=== PATIENT | female | born 1985 | race American Indian/Alaskan Native ===

== ENCOUNTER 2017-04-19 08:47 | Emergency (ER) | payer OTHER ==
[2017-04-19 08:51] VITALS: BMI 29.4
[2017-04-19] MEDS ORDERED: ONDANSETRON 4 MG/2 ML VIAL IVPB ONE (09:14)
[2017-04-19] MEDS ORDERED: PIPERACIL/TAZOB 3.375 GM 3.375 GM/50 ML PREMIX IVPB ONE (09:14)
[2017-04-19] MEDS ORDERED: SODIUM CHLORIDE 1,000 ML IV STA (09:14)
--- NOTE | 2017-04-19 09:18 | PDOC ---
History of Present Illness - General History Source: Patient, Old Records Exam Limitations: No Limitations <Adan Harrington - Last Filed: 04/19/17 11:41> - General History Source: Patient, Old Records Exam Limitations: No Limitations - History of Present Illness Initial Comments: 04/19/17 10:09 The patient is a 31 year old female with a significant PMH of kidney stones who presents to the emergency department with 6 hours of left sided pain and 2 hours of abdominal pain. The patient reports waking up at 3AM to spasm-like left sided flank pain that has been intermittent since then. She also reports nausea beginning this morning. She notes that this episode feels like her kidney stone from before. The patient denies any regular medications. The patient denies chest pain, shortness of breath, headache and dizziness. Denies fever, chills, vomit, diarrhea and constipation. Denies dysuria, frequency, urgency and hematuria. Allergies: NKA Past surgical history: None reported. Social history: No reported toxic habits. Urologist: Dr. Paula <Adan Suggs - Last Filed: 04/19/17 14:30> - General Chief Complaint: Pain Stated Complaint: LT SIDE PAIN Time Seen by Provider: 04/19/17 09:07 Past History - Past Medical History Anemia: No Asthma: No Cancer: No Cardiac Disorders: No CVA: No COPD: No CHF: No Dementia: No Diabetes: No GI Disorders: No Disorders: Yes (KIDNEY STONES) HTN: No Hypercholesterolemia: No Liver Disease: No Seizures: No Thyroid Disease: No - Surgical History Abdominal Surgery: Yes (gastric sleeve) Cholecystectomy: Yes - Immunization History Immunization Up to Date: Yes - Suicide/Smoking/Psychosocial Hx Smoking Status: No Smoking History: Never smoked Have you smoked in the past 12 months: Yes Number of Cigarettes Smoked Daily: 4 'Breaking Loose' booklet given: 09/23/12 Hx Alcohol Use: No Drug/Substance Use Hx: No Substance Use Type: None Hx Substance Use Treatment: No <Adan Harrington - Last Filed: 04/19/17 11:41> <Adan Suggs - Last Filed: 04/19/17 14:30> - Past Medical History Allergies/Adverse Reactions: Allergies Allergy/AdvReac Type Severity Reaction Status Date / Time No Known Allergies Allergy Verified 04/19/17 08:47 Home Medications: Ambulatory Orders Naproxen [Naprosyn -] 500 mg PO BID PRN #14 tablet 04/19/17 Ondansetron HCl [Zofran] 4 mg PO Q8H PRN #12 tablet 04/19/17 Oxycodone HCl/Acetaminophen [Percocet 5-325 mg Tablet] 1 tab PO Q6H PRN #15 tablet MDD 4 04/19/17 Tamsulosin HCl [Flomax] 0.4 mg PO DAILY #14 cap.er.24h 04/19/17 Review of Systems - Review of Systems Able to Perform ROS?: Yes Comments:: 04/19/17 10:10 GENERAL/CONSTITUTIONAL: No fever or chills. No weakness. HEAD, EYES, EARS, NOSE AND THROAT: No change in vision. No ear pain or discharge. No sore throat. CARDIOVASCULAR: No chest pain or shortness of breath. RESPIRATORY: No cough, wheezing, or hemoptysis. GASTROINTESTINAL: (+) Nausea. (+) Abdominal pain. No vomiting diarrhea or constipation. GENITOURINARY: No dysuria, frequency, or change in urination. MUSCULOSKELETAL: (+) Left sided flank pain. No joint pain. No neck or back pain. SKIN: No rash NEUROLOGIC: No headache, vertigo, loss of consciousness, or change in strength/ sensation. ENDOCRINE: No increased thirst. No abnormal weight change. HEMATOLOGIC/LYMPHATIC: No anemia, easy bleeding, or history of blood clots. ALLERGIC/IMMUNOLOGIC: No hives or skin allergy. <Adan Suggs - Last Filed: 04/19/17 14:30> *Physical Exam - Vital Signs Last Vital Signs Temp Pulse Resp BP Pulse Ox 98.1 F 79 18 132/82 100 04/19/17 08:48 04/19/17 08:48 04/19/17 08:48 04/19/17 08:48 04/19/17 08:48 <Adan Harrington - Last Filed: 04/19/17 11:41> - Vital Signs Last Vital Signs Temp Pulse Resp BP Pulse Ox 98.1 F 79 18 132/82 100 04/19/17 08:48 04/19/17 08:48 04/19/17 08:48 04/19/17 08:48 04/19/17 08:48 - Physical Exam Comments: 04/19/17 10:10 GENERAL: (+) Uncomfortable appearing. Awake, alert, and fully oriented. HEAD: No signs of trauma EYES: PERRLA, EOMI, sclera anicteric, conjunctiva clear ENT: Auricles normal inspection, hearing grossly normal, nares patent, oropharynx clear without exudates. Moist mucosa NECK: Normal ROM, supple, no lymphadenopathy, JVD, or masses LUNGS: Breath sounds equal, clear to auscultation bilaterally. No wheezes, and no crackles HEART: Regular rate and rhythm, normal S1 and S2, no murmurs, rubs or gallops ABDOMEN: Soft, nontender, normoactive bowel sounds. No guarding, no rebound. No masses EXTREMITIES: Normal range of motion, no edema. No clubbing or cyanosis. No cords, erythema, or tenderness MUSCULOSKELETAL: (+) Left side CVA tenderness NEUROLOGICAL: Cranial nerves II through XII grossly intact. Normal speech, normal gait SKIN: Warm, Dry, normal turgor, no rashes or lesions noted. <Adan Suggs - Last Filed: 04/19/17 14:30> ED Treatment Course - LABORATORY CBC & Chemistry Diagram: 04/19/17 09:15 04/19/17 09:15 - RADIOLOGY Radiology Studies Ordered: Category Date Time Status SPIRAL- RENAL-STONE CT [CT] Stat CT Scan 04/19/17 09:14 Ordered <Adan Harrington - Last Filed: 04/19/17 11:41> - LABORATORY CBC & Chemistry Diagram: 04/19/17 09:15 04/19/17 09:15 - ADDITIONAL ORDERS Additional order review: Laboratory Results 04/19/17 04/19/17 09:15 09:15 Serum , Qual Negative Urine Color Ltyellow Urine Appearance Clear Urine pH 9.0 H D Ur Specific [place] 1.012 Urine Protein Negative Urine Glucose (UA) Negative Urine Ketones Negative Urine Blood Negative Urine Nitrite Negative Urine Bilirubin Negative Urine Urobilinogen Negative 04/19/17 09:15 RBC 4.05 MCV 78.0 L MCHC 32.2 RDW 16.9 H D MPV 7.6 Neutrophils % 78.9 D Lymphocytes % 16.7 D Monocytes % 3.5 L Eosinophils % 0.3 D Basophils % 0.6 - Medications Given in the ED: ED Medications Discontinued Medications Generic Name Dose Route Start Last Admin Trade Name Freq PRN Reason Stop Dose Admin Ondansetron HCl 4 mg 04/19/17 09:14 04/19/17 09:33 Zofran Injection IVPB 04/19/17 09:15 4 mg ONCE ONE Administration - Additional Consults Consult/PCP: Baudilio Paula MD Reason/Comments: Saw her for kidney stone in past (2012) <Adan Suggs - Last Filed: 04/19/17 14:30> Medical Decision Making - Medical Decision Making 04/19/17 09:17 A portion of this note was documented by scribe services under my direction. I have reviewed the details of the note, within reason, and agree with the documentation with the following case summary and management plan written by me. Patient treated in the ED. Nursing notes are reviewed and incorporated into the medical decision-making. Vital signs reviewed. Peripheral IV access obtained by the nurse, laboratory studies are drawn and sent, reviewed and interpreted by myself. Vital Signs Temp Pulse Resp BP Pulse Ox 98.1 F 79 18 132/82 100 04/19/17 08:48 04/19/17 08:48 04/19/17 08:48 04/19/17 08:48 04/19/17 08:48 31-year-old female with past medical history renal colic presents with left flank pain since 3:00 in the morning. The patient was in her usual state of health when she started feeling constant left-sided flank pain with nausea. No vomiting, dysuria, hematuria or fevers or chills. Patient states feels exactly like renal colic. I suspect this is likely renal colic. Rule out pyelonephritis. Labs, urinalysis spiral CT. Pain control, anti-emetics and reassess. 04/19/17 11:41 CBC, BMP 04/19/17 09:15 04/19/17 09:15 CMP Sodium 138 mmol/L (136-145) 04/19/17 09:15 Potassium 3.9 mmol/L (3.5-5.1) 04/19/17 09:15 Chloride 105 mmol/L (98-107) 04/19/17 09:15 Carbon Dioxide 26 mmol/L (21-32) 04/19/17 09:15 Anion Gap 7 (8-16) L 04/19/17 09:15 BUN 10 mg/dL (7-18) 04/19/17 09:15 Creatinine 0.8 mg/dL (0.55-1.02) 04/19/17 09:15 Creat Clearance w eGFR > 60 (>60) 04/19/17 09:15 Random Glucose 94 mg/dL (74-106) 04/19/17 09:15 Calcium 8.4 mg/dL (8.5-10.1) L 04/19/17 09:15 Total Bilirubin 0.5 mg/dL (0.2-1.0) D 04/19/17 09:15 AST 10 U/L (15-37) L D 04/19/17 09:15 ALT 16 U/L (12-78) D 04/19/17 09:15 Alkaline Phosphatase 74 U/L (45-117) 04/19/17 09:15 Total Protein 7.2 g/dl (6.4-8.2) 04/19/17 09:15 Albumin 3.9 g/dl (3.4-5.0) 04/19/17 09:15 Lipase 130 U/L (73-393) 04/19/17 09:15 Serum , Qual Negative 04/19/17 09:15 Urine Test Results Urine Color Ltyellow 04/19/17 09:15 Urine Appearance Clear 04/19/17 09:15 Urine pH 9.0 (5.0-8.0) H D 04/19/17 09:15 Ur Specific [place] 1.012 (1.001-1.035) 04/19/17 09:15 Urine Protein Negative (NEGATIVE) 04/19/17 09:15 Urine Glucose (UA) Negative (NEGATIVE) 04/19/17 09:15 Urine Ketones Negative (NEGATIVE) 04/19/17 09:15 Urine Blood Negative (NEGATIVE) 04/19/17 09:15 Urine Nitrite Negative (NEGATIVE) 04/19/17 09:15 Urine Bilirubin Negative (NEGATIVE) 04/19/17 09:15 I had called the laboratory who reports that the UA is negative for leukocyte esterase. Patient's CAT scan was reviewed and demonstrates to have 5 x 7 mm proximal left ureter calculus with mild hydronephrosis and partial obstruction. Patient is no fever, elevated white count or infection the urine. I discussed the case with Dr. Tran who the patient saw in the past. The patient's pain is improved and is tolerating by mouth. After discussing case with urologist, he states that the patient can be discharged and follow up in his office tomorrow for further disposition. I discussed the plan with the patient was agree with the plan and feels comfortable. I discussed the physical exam findings, ancillary test results and final diagnoses with the patient. I answered all of the patient's questions. The patient was satisfied with the care received and felt comfortable with the discharge plan and treatment plan. The patient will call their primary care physician within 24 hours to arrange follow-up and will return to the Emergency Department with any new, persistant or worsening symptoms. <Adan Harrington - Last Filed: 04/19/17 11:41> *DC/Admit/Observation/Transfer - Discharge Dispostion Admit: No <Adan Harrington - Last Filed: 04/19/17 11:41> - Attestations Scribe Attestion: 04/19/17 10:10 Documentation prepared by Adan Suggs, acting as medical delivery technician for Adan Harrington MD. <Adan Suggs - Last Filed: 04/19/17 14:30> Diagnosis at time of Disposition: Renal calculus, left - Discharge Dispostion Disposition: HOME Condition at time of disposition: Improved - Prescriptions Prescriptions: Naproxen [Naprosyn -] 500 mg PO BID PRN #14 tablet PRN Reason: Pain Ondansetron HCl [Zofran] 4 mg PO Q8H PRN #12 tablet PRN Reason: Nausea Oxycodone HCl/Acetaminophen [Percocet 5-325 mg Tablet] 1 tab PO Q6H PRN #15 tablet MDD 4 PRN Reason: Severe Pain Tamsulosin HCl [Flomax] 0.4 mg PO DAILY #14 cap.er.24h - Referrals Referrals: Jose Maria Seo [Primary Care Provider] - Baudilio Paula MD [Staff Physician] - - Patient Instructions Printed Discharge Instructions: DI for Kidney Stones Additional Instructions: You have a 7 mm kidney stone on the left side. Please drink plenty of fluids and rest. Take 500 mg naproxen every 12 hours as needed for pain. For additional pain relief, take 1 tablet of percocet every 6 to 8 hours as needed. Do not drink or drive on this medication. Take the flomax daily. Follow up with DR. Paula tomorrow. Call to confirm time. - Post Discharge Activity Forms/Work/School Notes: Back to Work
[2017-04-19] MEDS ORDERED: morphine SULFATE 4 MG/ML VIAL ONE ×2 (09:24→11:32)
[2017-04-19] MEDS ORDERED: ONDANSETRON 4 MG/2 ML VIAL ONE (09:25)
[2017-04-19 09:38] LABS: URINE APPEARANCE CLEAR; URINE BILIRUBIN NEGATIVE (NEGATIVE); URINE BLOOD NEGATIVE (NEGATIVE); URINE COLOR LTYELLOW; URINE GLUCOSE (UA) NEGATIVE (NEGATIVE); URINE KETONE NEGATIVE (NEGATIVE); URINE NITRITE NEGATIVE (NEGATIVE); URINE PROTEIN NEGATIVE (NEGATIVE); URINE UROBILINOGEN NEGATIVE mg/dL (0.2-1.0)
[2017-04-19 09:41] LABS: BASOPHIL 0.6 % (0-2.0); EOSINOPHIL 0.3 % (0-4.5); MCH 25.1 pg (25.7-33.7); MCHC 32.2 g/dl (32.0-36.0); MEAN PLT VOLUME 7.6 fl (7.5-11.1); NEUTROPHILS 78.9 % (42.8-82.8); PLATELET COUNT 334 K/MM3 (134-434); RDW 16.9 % (11.6-15.6); WHITE BLOOD COUNT 9.3 K/mm3 (4.0-10.0)
[2017-04-19] MEDS ORDERED: morphine CARPU-JECT 4 MG/1 ML DISP.SYRIN IVPUSH ONE ×3 (10:01→11:36)
[2017-04-19 10:08] LABS: ALBUMIN 3.9 g/dl (3.4-5.0); ANION GAP 7 (8-16); BILIRUBIN,TOTAL 0.5 mg/dL (0.2-1.0); CALCIUM 8.4 mg/dL (8.5-10.1); CO2 26 mmol/L (21-32); CREATININE 0.8 mg/dL (0.55-1.02); GLUCOSE,RANDOM 94 mg/dL (74-106); SGOT/AST 10 U/L (15-37); SGPT/ALT 16 U/L (12-78); TOT PROT 7.2 g/dl (6.4-8.2)
[2017-04-19 10:09] LABS: ALK PHOS 74 U/L (45-117)
[2017-04-19] MEDS ORDERED: RANITIDINE HCL 150 MG TABLET (FP) PO ONE (10:41)
[2017-04-19] MEDS ORDERED: MAG HYDROX/AL HYDROX/SIMETH 30 ML UNIT-DOSE CUP PO ONE (10:41)
[2017-04-19] MEDS ORDERED: RANITIDINE HCL 150 MG TABLET (FP) ONE (11:16)
[2017-04-19] MEDS ORDERED: MAG HYDROX/AL HYDROX/SIMETH 30 ML UNIT-DOSE CUP ONE (11:16)
[2017-04-19] MEDS ORDERED: KETOROLAC TROMETHAMINE 15 MG/ML VIAL IVPUSH ONE (11:35)
[2017-04-19 13:05] VITALS: BP 147/85; PULSE 61; TEMP 98.6
[2017-04-19 17:11] LABS: URINE LEUK ESTERASE Negative (NEGATIVE)
== END 2017-04-19 13:05 | disposition home or self-care (01) ==
LOC: JER 08:47
PROC: 3E033NZ Introduction of Analgesics, Hypnotics, Sedatives into Peripheral Vein, Percutaneous Approach (ICD-10-PCS; principal; 2017-04-19)
PROC: 3E033NZ Introduction of Analgesics, Hypnotics, Sedatives into Peripheral Vein, Percutaneous Approach (ICD-10-PCS; 2017-04-19)
PROC: 3E033GC Introduction of Other Therapeutic Substance into Peripheral Vein, Percutaneous Approach (ICD-10-PCS; 2017-04-19)
DX: N20.0 Calculus of kidney (principal); Z87.442 Personal history of urinary calculi
CPT/HCPCS: 36415; 74176; 80053; 81003; 83690; 84703; 85025; 87086; 87186; 96374; 96375; 96376; 99284-25

== ENCOUNTER 2017-04-21 00:30 | Emergency (ER) | payer OTHER ==
[2017-04-21 00:44] VITALS: BMI 29.4
[2017-04-21 01:16] LABS: BASOPHIL 0.2 % (0-2.0); EOSINOPHIL 0.1 % (0-4.5); MCH 25.1 pg (25.7-33.7); MCHC 32.2 g/dl (32.0-36.0); MEAN PLT VOLUME 7.7 fl (7.5-11.1); NEUTROPHILS 87.1 % (42.8-82.8); PLATELET COUNT 284 K/MM3 (134-434); RDW 17.2 % (11.6-15.6); WHITE BLOOD COUNT 11.6 K/mm3 (4.0-10.0)
[2017-04-21 01:42] LABS: ALBUMIN 3.7 g/dl (3.4-5.0); ALK PHOS 71 U/L (45-117); ANION GAP 11 (8-16); BILIRUBIN,TOTAL 0.5 mg/dL (0.2-1.0); CO2 23 mmol/L (21-32); GLUCOSE,RANDOM 119 mg/dL (74-106); SGOT/AST 8 U/L (15-37); SGPT/ALT 14 U/L (12-78); TOT PROT 6.9 g/dl (6.4-8.2)
[2017-04-21] MEDS ORDERED: SODIUM CHLORIDE 1,000 ML IV STA (02:04)
[2017-04-21] MEDS ORDERED: KETOROLAC TROMETHAMINE 30 MG/1 ML VIAL IVPUSH ONE (02:05)
[2017-04-21] MEDS ORDERED: KETOROLAC TROMETHAMINE 30 MG/1 ML VIAL ONE (02:10)
--- NOTE | 2017-04-21 02:12 | PDOC ---
History of Present Illness - General History Source: Patient Exam Limitations: No Limitations - History of Present Illness Initial Comments: 04/21/17 02:18 Patient is a 31 year old female with a significant past medical history of recurrent kidney stones who presents to the ED with complaints of left flank pain that began 3 days ago. Patient reports coming to the ED yesterday for left flank and abdominal pain. Patient was diagnosed with kidney stone by physician. She reports left side flank pain has been persistent since being discharged from the ED last night. Patient reports experiencing left groin pain secondary to left flank pain. Denies chest pain, SOB. Denies fever, chills. Denies coughing, nausea, vomiting. Denies trauma to affected area. Denies any other symptoms. Allergies: None Social history: Current smoker (4 cigarettes per day). No alcohol. No illicit drugs. Surgical history: None PMD: Dr. Seo. Urologist : Dr. Paula <Beau Becker - Last Filed: 04/21/17 02:18> <Marias Rodriguez - Last Filed: 04/21/17 03:47> - General Chief Complaint: Pain Stated Complaint: PAIN/ VOMITING Time Seen by Provider: 04/21/17 00:41 Past History <Beau Becker - Last Filed: 04/21/17 02:18> - Past Medical History Anemia: No Asthma: No Cancer: No Cardiac Disorders: No CVA: No COPD: No CHF: No Dementia: No Diabetes: No GI Disorders: No Disorders: Yes (KIDNEY STONES) HTN: No Hypercholesterolemia: No Liver Disease: No Seizures: No Thyroid Disease: No - Surgical History Abdominal Surgery: Yes (gastric sleeve) Cholecystectomy: Yes - Immunization History Immunization Up to Date: Yes - Suicide/Smoking/Psychosocial Hx Smoking Status: No Smoking History: Never smoked Have you smoked in the past 12 months: No Number of Cigarettes Smoked Daily: 4 Information on smoking cessation initiated: No 'Breaking Loose' booklet given: 09/23/12 Hx Alcohol Use: No Drug/Substance Use Hx: No Substance Use Type: None Hx Substance Use Treatment: No <Marisa Rodriguez - Last Filed: 04/21/17 03:47> - Past Medical History Allergies/Adverse Reactions: Allergies Allergy/AdvReac Type Severity Reaction Status Date / Time No Known Allergies Allergy Verified 04/21/17 00:42 Home Medications: Ambulatory Orders Naproxen [Naprosyn -] 500 mg PO BID PRN #14 tablet 04/19/17 Ondansetron HCl [Zofran] 4 mg PO Q8H PRN #12 tablet 04/19/17 Oxycodone HCl/Acetaminophen [Percocet 5-325 mg Tablet] 1 tab PO Q6H PRN #15 tablet MDD 4 04/19/17 Tamsulosin HCl [Flomax] 0.4 mg PO DAILY #14 cap.er.24h 04/19/17 Review of Systems - Review of Systems Able to Perform ROS?: Yes Comments:: 04/21/17 02:18 CONSTITUTIONAL: Absent: fever, chills, diaphoresis, generalized weakness, malaise, loss of appetite HEENT: Absent: rhinorrhea, nasal congestion, throat pain, throat swelling, difficulty swallowing, mouth swelling, ear pain, eye pain, visual Changes CARDIOVASCULAR: Absent: chest pain, syncope, palpitations, irregular heart rate, lightheadedness , peripheral edema RESPIRATORY: Absent: cough, shortness of breath, dyspnea with exertion, orthopnea, wheezing, stridor, hemoptysis GASTROINTESTINAL: Absent: abdominal pain, abdominal distension, nausea, vomiting, diarrhea, constipation, melena, hematochezia GENITOURINARY: Absent: dysuria, frequency, urgency, hesitancy, hematuria, flank pain, genital pain MUSCULOSKELETAL: Absent: myalgia, arthralgia, joint swelling SKIN: Absent: rash, itching, pallor HEMATOLOGIC/IMMUNOLOGIC: Absent: easy bleeding, easy bruising, lymphadenopathy, frequent infections ENDOCRINE: Absent: unexplained weight gain, unexplained weight loss, heat intolerance, cold intolerance NEUROLOGIC: Absent: headache, focal weakness or paresthesias, dizziness, unsteady gait, seizure, mental status changes, bladder or bowel incontinence PSYCHIATRIC: Absent: anxiety, depression, suicidal or homicidal ideation, hallucinations. All Other Systems: Reviewed and Negative <Beau Becker - Last Filed: 04/21/17 02:18> *Physical Exam - Vital Signs Last Vital Signs Temp Pulse Resp BP Pulse Ox 94 H 14 146/85 96 04/21/17 00:42 04/21/17 00:42 04/21/17 00:42 04/21/17 00:42 - Physical Exam Comments: 04/21/17 02:18 GENERAL: Well developed, well nourished. Awake and alert. No acute distress. HEENT: Normocephalic, atraumatic. PERRLA, EOMI. No conjunctival pallor. Sclera are non- icteric. Moist mucous membranes. Oropharynx is clear. NECK: Supple. Full ROM. No JVD. Carotid pulses 2+ and symmetric, without bruits. No thyromegaly. No lymphadenopathy. CARDIOVASCULAR: Regular rate and rhythm. No murmurs, rubs, or gallops. Distal pulses are 2+ and symmetric. PULMONARY: No evidence of respiratory distress. Lungs clear to auscultation bilaterally. No wheezing, rales or rhonchi. ABDOMINAL: +Left flank pain. +Left groin pain. Soft. Non-tender. Non-distended. No rebound or guarding. No organomegaly. Normoactive bowel sounds. MUSCULOSKELETAL Normal range of motion at all joints. No bony deformities or tenderness. No CVA tenderness. EXTREMITIES: No cyanosis. No clubbing. No edema. No calf tenderness. SKIN: Warm and dry. Normal capillary refill. No rashes. No jaundice. NEUROLOGICAL: Alert, awake, appropriate. Cranial nerves 2-12 intact. No deficits to light touch and temperature in face, upper extremities and lower extremities. No motor deficits in the in face, upper extremities and lower extremities. Normoreflexic in the upper and lower extremities. Normal speech. Toes are down-going bilaterally. Gait is normal without ataxia. PSYCHIATRIC: Cooperative. Good eye contact. Appropriate mood and affect. <Beau Becker - Last Filed: 04/21/17 02:18> - Vital Signs Last Vital Signs Temp Pulse Resp BP Pulse Ox 94 H 14 146/85 96 04/21/17 00:42 04/21/17 00:42 04/21/17 00:42 04/21/17 00:42 <Marisa Rodriguez - Last Filed: 04/21/17 03:47> ED Treatment Course - LABORATORY CBC & Chemistry Diagram: 04/21/17 01:05 04/21/17 01:05 - ADDITIONAL ORDERS Additional order review: Laboratory Results 04/21/17 04/21/17 02:09 01:05 Sodium 137 Potassium 3.6 Chloride 103 Carbon Dioxide 23 Anion Gap 11 BUN 8 Creatinine 1.0 D Creat Clearance w eGFR > 60 Random Glucose 119 H D Calcium 8.0 L Total Bilirubin 0.5 AST 8 L ALT 14 Alkaline Phosphatase 71 Total Protein 6.9 Albumin 3.7 Urine HCG, Qual Negative 04/21/17 01:05 RBC 3.70 MCV 78.0 L MCHC 32.2 RDW 17.2 H MPV 7.7 Neutrophils % 87.1 H Lymphocytes % 7.5 L D Monocytes % 5.1 Eosinophils % 0.1 Basophils % 0.2 - Medications Given in the ED: ED Medications Discontinued Medications Generic Name Dose Route Start Last Admin Trade Name Shar PRN Reason Stop Dose Admin Ketorolac Tromethamine 30 mg 04/21/17 02:05 04/21/17 02:14 Toradol Injection - IVPUSH 04/21/17 02:06 30 mg ONCE ONE Administration <Beau Becker - Last Filed: 04/21/17 02:18> - LABORATORY CBC & Chemistry Diagram: 04/21/17 01:05 04/21/17 01:05 - ADDITIONAL ORDERS Additional order review: Laboratory Results 04/21/17 01:05 Sodium 137 Potassium 3.6 Chloride 103 Carbon Dioxide 23 Anion Gap 11 BUN 8 Creatinine 1.0 D Creat Clearance w eGFR > 60 Random Glucose 119 H D Calcium 8.0 L Total Bilirubin 0.5 AST 8 L ALT 14 Alkaline Phosphatase 71 Total Protein 6.9 Albumin 3.7 04/21/17 01:05 RBC 3.70 MCV 78.0 L MCHC 32.2 RDW 17.2 H MPV 7.7 Neutrophils % 87.1 H Lymphocytes % 7.5 L D Monocytes % 5.1 Eosinophils % 0.1 Basophils % 0.2 <Marisa Rodriguez - Last Filed: 04/21/17 03:47> Medical Decision Making - Medical Decision Making 04/21/17 03:06 31-year-old female with a documented stone in her left ureter. Presents because of continued symptoms, nausea, vomiting and left flank pain. She is also concerned that she is constipated. She has been on narcotics for pain control for several days. She did follow-up with her urologist today and she is scheduled to have lithotripsy on Wednesday -she kept requesting an enema for her constipation and was given a fleets 04/21/17 03:44 I explained to the patient that much of her symptoms were related to the kidney stone- symptoms such as nausea, vomiting, flank pain radiating down to her groin However, she felt that was for constipation that was causing a lot of her symptoms and was very concerned that she have a bowel movement and she was given a fleets enema with success. She now would like to go home and I will discharge her home <Marisa Rodriguez - Last Filed: 04/21/17 03:47> *DC/Admit/Observation/Transfer - Attestations Scribe Attestion: 04/21/17 02:18 Documentation prepared by Beau Becker, acting as medical insurance collector for Marisa Rodriguez MD/DO. <Beau Becker - Last Filed: 04/21/17 02:18> <Marisa Rodriguez - Last Filed: 04/21/17 03:47> Diagnosis at time of Disposition: Renal calculus, left - Discharge Dispostion Disposition: HOME Condition at time of disposition: Stable - Referrals Referrals: Jose Maria Seo [Primary Care Provider] - - Patient Instructions Printed Discharge Instructions: DI for Kidney Stones, DI for Constipation Additional Instructions: please keep your appointment with your doctor - Post Discharge Activity
[2017-04-21] MEDS ORDERED: ONDANSETRON 4 MG/2 ML VIAL IVPUSH ONE (03:00)
[2017-04-21] MEDS ORDERED: MINERAL OIL ENEMA 133 ML ENEMA PR ONE (03:00)
[2017-04-21] MEDS ORDERED: ONDANSETRON 4 MG/2 ML VIAL ONE (03:06)
[2017-04-21 04:02] VITALS: BP 142/82; PULSE 90
== END 2017-04-21 04:05 | disposition home or self-care (01) ==
LOC: JER 00:30
PROC: 3E0333Z Introduction of Anti-inflammatory into Peripheral Vein, Percutaneous Approach (ICD-10-PCS; principal; 2017-04-21)
PROC: 3E0337Z Introduction of Electrolytic and Water Balance Substance into Peripheral Vein, Percutaneous Approach (ICD-10-PCS; 2017-04-21)
DX: N23 Unspecified renal colic (principal); Z98.84 Bariatric surgery status; Z72.0 Tobacco use
CPT/HCPCS: 36415; 80053; 84703; 85025; 96361; 96374; 99283-25

== ENCOUNTER 2017-04-27 06:58 | Day surgery (SDC) | payer OTHER ==
[2017-04-26 11:51] VITALS: BMI 29.4
[2017-04-27] MEDS ORDERED: LIDOCAINE HCL/PF 2% SDV 5ML VIAL ONE (08:38)
[2017-04-27] MEDS ORDERED: MIDAZOLAM HCL 2 MG/2 ML SINGLE DOSE VIAL ONE (08:38)
[2017-04-27] MEDS ORDERED: KETOROLAC TROMETHAMINE 30 MG/1 ML VIAL ONE ×2 (08:38→08:55)
[2017-04-27] MEDS ORDERED: PROPOFOL 20 ML ONE (08:38)
[2017-04-27] MEDS ORDERED: ceFAZolin SODIUM 1 GM VIAL ONE (08:44)
[2017-04-27] MEDS ORDERED: ceFAZolin SODIUM 1 GM VIAL IVPB ONE (08:46)
[2017-04-27] MEDS ORDERED: oxyCODONE HCL 5 MG TABLET PO PRN (08:48)
--- NOTE | 2017-04-27 08:50 | OP ---
Operative Note - Note: Operative Date: 04/27/17 Pre-Operative Diagnosis: 7mm left proximal ureteral stone Operation: ESWL Findings: LPU stone Post-Operative Diagnosis: Same as Pre-op Surgeon: Baudilio Paula Anesthesia: General Estimated Blood Loss (mls): 0 Operative Report Dictated: Yes
[2017-04-27] MEDS ORDERED: ELECTROLYTE-148 SOLN 1,000 ML IV SCH (09:00)
[2017-04-27] MEDS ORDERED: ONDANSETRON 4 MG/2 ML VIAL IVPUSH PRN (09:17)
[2017-04-27] MEDS ORDERED: ACETAMINOPHEN 500 MG TABLET (FP) PO PRN (09:17)
[2017-04-27] MEDS ORDERED: LACTATED RINGERS SOLUTION 1,000 ML IV SCH (09:30)
--- NOTE | 2017-04-27 09:47 | OP ---
DATE OF OPERATION: 04/27/2017 PREOPERATIVE DIAGNOSIS: A 7-mm left proximal ureteral stone. POSTOPERATIVE DIAGNOSIS: Partially obstructing left proximal ureteral stone. PROCEDURE: Extracorporeal shock wave lithotripsy. SURGEON: Karen Chavez MD INDICATIONS: Patient is a 31-year-old female with symptomatic obstructing 7-mm left proximal ureteral stone, who despite conservative management failed to pass stone and continued to show up to ER with pain. After reviewing treatment options, patient elected to undergo ESWL, understanding the risks of bleeding, infection, potential inability to eradicate the stone, potential need for additional procedures as a result, and potential injury to adjacent organs. DESCRIPTION OF PROCEDURE: After informed consent was obtained, the patient was taken to the OR, placed supine on the OR table. After cardiac monitoring was administered and general anesthesia established, she was placed on the ESWL table. Under active fluoroscopy, a stone was seen, approximately 7 mm in size, to the right of L3-L4. The stone was centered in the crosshairs, and then, 3000 shocks were delivered to cause fragmentation of the stone. Shocking was done under active fluoroscopy at all times to confirm placement of the stone in the center of the crosshairs on the XYZ axes. There appeared to be fragmentation of the stone at the completion of this procedure. Patient then was awoken from anesthesia and transferred to the recovery room in stable condition. There were no complications. Estimated blood loss was minimal. KAREN CHAVEZ M.D. [id number]
[2017-04-27 11:00] VITALS: BP 125/66; PULSE 86
[2017-04-27 13:18] VITALS: TEMP 99
== END 2017-04-27 11:04 | disposition home or self-care (01) ==
LOC: JASU-SURG 06:58
PROVIDERS: ATTEND Urology
PROC: 0TF7XZZ Fragmentation in Left Ureter, External Approach (ICD-10-PCS; principal; 2017-04-27 08:30)
DX: N20.1 Calculus of ureter (principal)
CPT/HCPCS: 84703; 94760

== ENCOUNTER 2017-09-09 10:03 | Emergency (ER) | payer OTHER ==
[2017-09-09 10:16] VITALS: TEMP 98; BMI 30.7
[2017-09-09] MEDS ORDERED: SODIUM CHLORIDE 0.9% 1000 ML INFUS.BAG IV ONE (11:10)
--- NOTE | 2017-09-09 11:12 | PDOC ---
History of Present Illness - General Chief Complaint: Vaginal Bleeding Stated Complaint: VAGINAL BLEEDING (5 WKS ) Time Seen by Provider: 09/09/17 10:15 History Source: Patient Exam Limitations: No Limitations - History of Present Illness Initial Comments: 09/09/17 11:10 The patient is a 31 year old female, , 6 weeks (LMP ) with no significant PMH who presents to the emergency department with vaginal spotting 3 days ago now vaginal bleeding. The patient states she may have passed some tissue with bright red blood at 9AM this morning. The patient is now complaining of R sided abdominal cramping. Of note, the patient also reports a syncopal episode 3 days ago, LOC lasting approximately 2 minutes, witnessed by her and denies head trauma. The patient denies chest pain, shortness of breath, headache and dizziness. Denies fever, chills, nausea, vomit, diarrhea and constipation. Allergies: NKDA Past surgical history: X 2 , cholecysatectomy , gastric sleeve Social history: No reported alcohol, drug,she smoke socially for one year quit one year ago MEDs: Pre multivitamins PCP: Dr. Rayray Phillips; exaM: Vital Signs Period Temp Pulse Resp BP Sys/Olivares Pulse Ox Last 24 Hr 98 F 101 20 115/67 100 General: well nourished in no acute distress Head: NC/AT Neck: supple , no lymphadenopathy ENT: M MM, EOMI, PEACE, Lungs: CTA B.L, no wheezes, no accessory muscle use Heart: RRR, NO MRG Abdomen: soft, RLQ tenderness , + bowel sound. Legs: +2 DP, no edema, Neuro: no focal deficit, normal speech, normal gait. Psych: appropriate mood and effect Vaginal exam: closed OS with minimal bleeding DD: Ectopis threan to normal miscarriage WorK up CBC, CMP Type and screen BHCG quantitative US transvaginal blood type and screen 09/09/17 13:31 Single live intrauterine gestation with estimated gestational age of 6 weeks 1 day. heart activity was documented. A small subchorionic hemorrhage is present measuring approximately 7 mm in width. Close follow-up ultrasound is recommended for further evaluation. 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 Past History - Past Medical History Allergies/Adverse Reactions: Allergies Allergy/AdvReac Type Severity Reaction Status Date / Time No Known Allergies Allergy Verified 09/09/17 10:16 Home Medications: Ambulatory Orders NK [No Known Home Medication] 09/09/17 Anemia: No Asthma: No Cancer: No Cardiac Disorders: No CVA: No COPD: No CHF: No Dementia: No Diabetes: No GI Disorders: No Disorders: Yes (KIDNEY STONES) HTN: No Hypercholesterolemia: No Liver Disease: No Seizures: No Thyroid Disease: No - Surgical History Abdominal Surgery: Yes (gastric sleeve) Cholecystectomy: Yes - Reproductive History Is Patient Now?: Yes (#): 3 Para: 2 - Immunization History Immunization Up to Date: Yes - Suicide/Smoking/Psychosocial Hx Smoking Status: No Smoking History: Never smoked Have you smoked in the past 12 months: No Number of Cigarettes Smoked Daily: 4 'Breaking Loose' booklet given: 09/23/12 Hx Alcohol Use: No Drug/Substance Use Hx: No Substance Use Type: None Hx Substance Use Treatment: No *Physical Exam - Vital Signs Last Vital Signs Temp Pulse Resp BP Pulse Ox 98 F 101 H 20 115/67 100 09/09/17 10:13 09/09/17 10:13 09/09/17 10:13 09/09/17 10:13 09/09/17 10:13 ED Treatment Course - LABORATORY CBC & Chemistry Diagram: 09/09/17 11:20 09/09/17 11:20 *DC/Admit/Observation/Transfer Diagnosis at time of Disposition: , threatened - Discharge Dispostion Disposition: HOME Admit: No - Referrals Referrals: Jose Maria Seo [Primary Care Provider] - 1 week Emmett Saldana MD [Staff Physician] - Call tomorrow - Patient Instructions Additional Instructions: You presented to emergency room de to vaginal bleeding , your work up shows normal with 7 mm of blood sub choroidal, please folow up with your primary physician within one week Please 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 - Post Discharge Activity
[2017-09-09] MEDS ORDERED: ACETAMINOPHEN 1000 MG/100 ML VIAL (NON FORMULARY) IVPB ONE (11:24)
[2017-09-09 11:26] LABS: BASO % 0.7 % (0-2.0); EOS % 0.5 % (0-4.5); HEMATOCRIT 29.7 % (32.4-45.2); HEMOGLOBIN 9.6 GM/dL (10.7-15.3); LYMPH % 19.7 % (8-40); MCH 24.6 pg (25.7-33.7); MCHC 32.3 g/dl (32.0-36.0); MEAN CELL VOLUME 76.3 fl (80-96); MEAN PLT VOLUME 7.5 fl (7.5-11.1); MONO % 5.8 % (3.8-10.2); NEUT % 73.3 % (42.8-82.8); PLATELET COUNT 332 K/MM3 (134-434); RBC 3.89 M/mm3 (3.60-5.2); RDW 17.6 % (11.6-15.6); WHITE BLOOD COUNT 8.2 K/mm3 (4.0-10.0)
[2017-09-09 11:33] LABS: HCG,QUALITATIVE URINE POSITIVE
[2017-09-09 11:35] LABS: URINE APPEARANCE CLEAR; URINE BILIRUBIN NEGATIVE (<2.0 mg/dL); URINE BLOOD 2+ (NEGATIVE); URINE COLOR YELLOW; URINE GLUCOSE (UA) NEGATIVE (NEGATIVE); URINE KETONE NEGATIVE (NEGATIVE); URINE LEUK ESTERASE NEGATIVE (NEGATIVE); URINE NITRITE NEGATIVE (NEGATIVE); URINE PROTEIN NEGATIVE (NEGATIVE)
[2017-09-09] MEDS ORDERED: ACETAMINOPHEN INJECTION 100 ML IVPB ONE (11:38)
[2017-09-09 11:56] LABS: ALBUMIN 3.7 g/dl (3.4-5.0); CHLORIDE 106 mmol/L (98-107); SODIUM 138 mmol/L (136-145)
--- NOTE | 2017-09-09 11:59 | PDOC ---
Attending Attestation - HPI HPI: 09/09/17 12:02 The patient is a 31 year old female, , 6 weeks (LMP ) with no significant PMH who presents to the emergency department with vaginal spotting 3 days ago now vaginal bleeding. The patient states she may have passed some tissue with bright red blood at 9AM this morning. The patient is now complaining of R sided abdominal cramping. Of note, the patient also reports a syncopal episode 3 days ago, LOC lasting approximately 2 minutes, witnessed by her and denies head trauma. The patient denies chest pain, shortness of breath, headache and dizziness. Denies fever, chills, nausea, vomit, diarrhea and constipation. Allergies: NKA Past surgical history: None reported. Social history: No reported alcohol, drug, or cigarette use. PCP: Dr. Seo - Physicial Exam PE: 09/09/17 12:01 GENERAL: Awake, alert, and fully oriented, in no acute distress HEAD: No signs of trauma EYES: PERRLA, EOMI, sclera anicteric, conjunctiva clear ENT: Auricles normal inspection, hearing grossly normal, nares patent, oropharynx clear without exudates. Moist mucosa NECK: Normal ROM, supple, no lymphadenopathy, JVD, or masses LUNGS: Breath sounds equal, clear to auscultation bilaterally. No wheezes, and no crackles HEART: Regular rate and rhythm, normal S1 and S2, no murmurs, rubs or gallops ABDOMEN: (+) Mild suprapubic tenderness. Soft, normoactive bowel sounds. No guarding, no rebound. No masses Pevlic exam per Dr. Dean EXTREMITIES: Normal range of motion, no edema. No clubbing or cyanosis. No cords, erythema, or tenderness NEUROLOGICAL: Cranial nerves II through XII grossly intact. Normal speech, normal gait SKIN: Warm, Dry, normal turgor, no rashes or lesions noted. - Medical Decision Making <Janette Sánchez - Last Filed: 09/09/17 12:06> - Resident Resident Name: Gino Dean - ED Attending Attestation I have performed the following: I have examined & evaluated the patient, The case was reviewed & discussed with the resident, I agree w/resident's findings & plan, Exceptions are as noted - Medical Decision Making 09/09/17 11:53 31-year-old female currently 6 weeks with LMP of July 30 here with chief complaint of vaginal spotting and now bleeding. Think she passed some fluid and tissue On exam abdomen is mild superpubic tenderness Differential includes ectopic, complete or incomplete AB, threatened AB. Plan IV hydration labs CBC rule out anemia blood type and quantitative beta and transvaginal ultrasound 09/09/17 13:57 pt with IUP, small subchorionic hemorrhage. will dc home, has ob followup tomorrow.blood type O positive. 09/09/17 13:58 <Dinora Anaya - Last Filed: 09/09/17 13:58>
[2017-09-09 12:04] LABS: ALK PHOS 62 U/L (45-117); ANION GAP 9 (8-16); BILIRUBIN,TOTAL 0.3 mg/dL (0.2-1.0); BLOOD UREA NITROGEN 14 mg/dL (7-18); CALCIUM 8.4 mg/dL (8.5-10.1); CO2 23 mmol/L (21-32); CREATININE 0.8 mg/dL (0.55-1.02); GLUCOSE,RANDOM 84 mg/dL (74-106); SGOT/AST 8 U/L (15-37); SGPT/ALT 16 U/L (12-78); TOT PROT 7.4 g/dl (6.4-8.2)
[2017-09-09 13:05] LABS: EPI CELLS RARE /HPF (FEW); URINE MUCUS MANY
[2017-09-09 14:12] VITALS: BP 132/74; PULSE 74
== END 2017-09-09 14:11 | disposition home or self-care (01) ==
LOC: JER 10:03
PROC: 3E033NZ Introduction of Analgesics, Hypnotics, Sedatives into Peripheral Vein, Percutaneous Approach (ICD-10-PCS; principal; 2017-09-09)
DX: O26.891 Other specified pregnancy related conditions, first trimester (principal); O20.0 Threatened abortion; Z3A.01 Less than 8 weeks gestation of pregnancy
CPT/HCPCS: 36415; 76817-TC; 80053; 81003; 81015; 84702; 84703; 85025; 86850; 86900; 86901; 99282-25; J0131; J7030

== ENCOUNTER 2020-09-07 14:05 | Emergency (ER) | payer OTHER ==
[2020-09-07 14:46] VITALS: TEMP 98.2; BMI 32.3
[2020-09-07 15:02] LABS: BASO % 0.9 % (0-2.0); EOS % 0.7 % (0-4.5); HEMATOCRIT 39.6 % (32.4-45.2); HEMOGLOBIN 13.3 GM/dL (10.7-15.3); LYMPH % 21.2 % (8-40); MCH 30.9 pg (25.7-33.7); MCHC 33.7 g/dl (32.0-36.0); MEAN CELL VOLUME 91.6 fl (80-96); MEAN PLT VOLUME 8.4 fl (7.5-11.1); MONO % 4.8 % (3.8-10.2); NEUT % 72.4 % (42.8-82.8); PLATELET COUNT 260 K/MM3 (134-434); RBC 4.32 M/mm3 (3.60-5.2); RDW 13.9 % (11.6-15.6); WHITE BLOOD COUNT 8.4 K/mm3 (4.0-10.0)
[2020-09-07 15:13] LABS: EPI CELLS 10 /uL (0-25.1); HYALINE CASTS 1 /uL (0-3.1); PH,URINE 5.5 (5.0-8.0); URINE APPEARANCE CLEAR; URINE BACTERIA 22 /uL (0-1359); URINE BILIRUBIN NEGATIVE (NEGATIVE); URINE COLOR YELLOW; URINE GLUCOSE (UA) NEGATIVE (NEGATIVE); URINE KETONE 1+ (NEGATIVE); URINE LEUK ESTERASE NEGATIVE (NEGATIVE); URINE NITRITE NEGATIVE (NEGATIVE); URINE PROTEIN NEGATIVE (NEGATIVE); URINE RBC 54 /uL (0-23.9); URINE UROBILINOGEN 0.2 mg/dL (0.2-1.0); URINE WBC 7 /uL (0-25.8)
[2020-09-07 15:21] LABS: POTASSIUM 3.8 mmol/L (3.5-5.1)
[2020-09-07 15:24] LABS: CALCIUM 8.8 mg/dL (8.5-10.1)
[2020-09-07 15:25] LABS: ALBUMIN 3.9 g/dl (3.4-5.0); MAGNESIUM 1.9 mg/dL (1.8-2.4)
[2020-09-07 15:28] LABS: CREATININE 1.1 mg/dL (0.55-1.3)
[2020-09-07 15:29] LABS: BILIRUBIN,TOTAL 0.3 mg/dL (0.2-1); TOT PROT 7.3 g/dl (6.4-8.2)
[2020-09-07 17:09] VITALS: BP 117/75; PULSE 88
== END 2020-09-07 17:05 | disposition home or self-care (01) ==
LOC: JER 14:05
DX: O26.851 Spotting complicating pregnancy, first trimester (principal); Z3A.01 Less than 8 weeks gestation of pregnancy
CPT/HCPCS: 36415; 76817-TC; 80053; 81003; 83735; 84702; 85025; 86850; 86900; 86901; 87086; 99284-25